=== PATIENT | male | born 1955 | race Caucasian/White ===

== ENCOUNTER 2020-10-17 19:56 | Emergency (ER) | payer SELFPAY ==
--- NOTE | 2020-10-17 20:36 | ER ---
Nurse's Notes [facility] Name: Alberto Nicole Age: 65 yrs Sex: Male : 1955 Arrival Date: 10/17/2020 Time: 20:02 Bed Waiting Private MD: Diagnosis: Presentation: 10/17 20:34 Note Registration [place] says pt left. ca1 ED Course: 20:02 Patient arrived in ED. am4 Administered Medications: No medications were administered Outcome: 20:35 Patient left the ED. ca1 Signatures: Lalitha Durand RN RN ca1 Suni Smith
== END 2020-10-17 20:35 | disposition left against medical advice (07) ==
LOC: ER 19:56
DX: Z02.9 Encounter for administrative examinations, unspecified (principal)

== ENCOUNTER 2023-02-23 18:26 | Emergency (ER) | payer OTHER ==
[2023-02-23 19:15] LABS: Specific Gravity 1.012 (1.005-1.030); Urine Bacteria None Seen /HPF (<20); Urine Bilirubin NEGATIVE (Negative); Urine Blood 3+ (OVER) (Negative); Urine Clarity Extremely Turbid (Clear); Urine Color Red (Yellow); Urine Glucose NEGATIVE (Negative); Urine Protein 2+ (Negative); Urine RBC >50 /HPF (None Seen); Urine Urobilinogen Normal (Normal); Urine pH 6.5 (5.0-7.0)
[2023-02-23 19:15] LABS: Protime INR 1.05
--- NOTE | 2023-02-23 19:50 | RAD REPORT ---
EXAM DESCRIPTION: CT - Stone Protocol - 02/23/2023 7:27 pm CLINICAL HISTORY: Hematuria COMPARISON: September 2022 TECHNIQUE: Computed axial tomography of the abdomen pelvis was obtained without oral or IV contrast. Lack of IV and oral contrast limits evaluation of solid organs, appendix, bowel, and vessels. Armstrong l reformatted images were obtained and reviewed. All CT scans are performed using dose optimization technique as appropriate and may include automated exposure control or mA/KV adjustment according to patient size. FINDINGS: Marked left and moderate to marked right hydronephrosis. Mild cortical thinning right kidn ey. Each ureter is dilated to the level of the bladder. 7 centimeter area of increased density within the bladder represents blood. Left lateral asymmetric bladder wall thickening. A 6 millimeter lymph node lies adjacent to the right aspect of the bladder. Marked prostatic enlargement. No evidence of diverticulitis. Normal appendix Liver, spleen, pancreas and adrenals grossly normal Marked chronic compression deformity L1 vertebral body IMPRESSION: Both ureters are likely obstructed at the UVJ. Marked dilatation of each ureter. Marked left and moderate to marked right hydronephrosis. Blood is present within the bladder. Left lateral asymmetric bladder wall thickening may indicate neoplasm. Direct visualization recommend ed Additional bladder wall thickening likely secondary to chronic outlet obstruction
--- NOTE | 2023-02-23 20:20 | ER ---
Nurse's Notes [facility] Name: Alberto Nicole Age: 67 yrs Sex: Male : 1955 Arrival Date: 02/23/2023 Time: 18:26 Bed 18 Private MD: Diagnosis: Gross hematuria;Unspecified hydronephrosis Presentation: 02/23 18:37 Chief complaint: Patient states: "My prostate is bleeding and it is filling up my cm10 bladder with blood and it is making my blood pressure go up." Pt states that he has had blood in his urine since yesterday. Pt denies chest pain and shortness of breath. Coronavirus screen: Vaccine status: Patient reports being unvaccinated. Client denies travel out of the [place] in the last 14 days. Ebola Screen: Patient denies travel to an Ebola-affected area in the 21 days before illness onset. No symptoms or risks identified at this time. Initial Sepsis Screen: Does the patient meet any 2 criteria? No. Patient's initial sepsis screen is negative. Does the patient have a suspected source of infection? No. Patient's initial sepsis screen is negative. Risk Assessment: Do you want to hurt yourself or someone else? Patient reports no desire to harm self or others. Onset of symptoms was February 22, 2023. 18:37 Method Of Arrival: Ambulatory cm10 18:37 Acuity: AMILCAR 3 cm10 Triage Assessment: 18:46 General: Appears in no apparent distress. comfortable, Behavior is calm, cooperative. db Pain: Denies pain. Historical: - Allergies: 18:40 No Known Allergies; cm10 - PMHx: 18:40 Hypertensive disorder; BPH; cm10 - PSHx: 18:40 prostate; cm10 - Immunization history:: Adult Immunizations up to date. - Social history:: Smoking status: Patient denies any tobacco usage or history of. - Family history:: not pertinent. - Hospitalizations: : No recent hospitalization is reported. Screenin:[address] [facility] ED Fall Risk Assessment (Adult) Score/Fall Risk Level 0 - 2 = Low Risk. Abuse eh3 screen: Denies threats or abuse. Denies injuries from another. Nutritional screening: No deficits noted. Tuberculosis screening: No symptoms or risk factors identified. Assessment: 18:45 General: Appears in no apparent distress. uncomfortable, Behavior is calm, cooperative, eh3 appropriate for age. Pain: Complains of pain in suprapubic area. Neuro: Level of Consciousness is awake, alert, obeys commands, Oriented to person, place, time, situation. Cardiovascular: Capillary refill < 3 seconds Patient's skin is warm and dry. Respiratory: Airway is patent Respiratory effort is even, unlabored, Respiratory pattern is regular, symmetrical. GI: Abdomen is round non-distended. : Urine is cande blood. Derm: Skin is healthy with good turgor, Skin is pink, warm \\T\\ dry. Musculoskeletal: Circulation, motion, and sensation intact. Range of motion: intact in all extremities. 19:30 Reassessment: Patient appears in no apparent distress at this time. Patient and/or eh3 family updated on plan of care and expected duration. Pain level reassessed. Patient is alert, oriented x 3, equal unlabored respirations, skin warm/dry/pink. 20:30 Reassessment: Patient appears in no apparent distress at this time. Patient and/or eh3 family updated on plan of care and expected duration. Pain level reassessed. Patient is alert, oriented x 3, equal unlabored respirations, skin warm/dry/pink. 21:30 Reassessment: Patient appears in no apparent distress at this time. Patient and/or eh3 family updated on plan of care and expected duration. Pain level reassessed. Patient is alert, oriented x 3, equal unlabored respirations, skin warm/dry/pink. 22:30 Reassessment: Patient and/or family updated on plan of care and expected duration. Pain ha1 level reassessed. Patient is alert, oriented x 3, equal unlabored respirations, skin warm/dry/pink. 23:00 Reassessment: report given to IRMA Alfred. ha1 02/24 00:00 Reassessment: Patient and/or family updated on plan of care and expected duration. Pain ha1 level reassessed. Patient is alert, oriented x 3, equal unlabored respirations, skin warm/dry/pink. Vital Signs: 02/23 18:37 BP 227 / 115; Pulse 67; Resp 18; Temp 98.1; Pulse Ox 100% ; Weight 104.33 kg; Height 6 cm10 ft. 1 in. ; Pain 0/10; 20:31 BP 228 / 116; Pulse 66; Resp 18; Pulse Ox 98% on R/A; eh3 21:00 BP 218 / 104; Pulse 64; Resp 18; Pulse Ox 98% on R/A; eh3 21:30 BP 200 / 102; Pulse 60; Resp 16; Pulse Ox 98% on R/A; eh3 22:00 BP 131 / 82; Pulse 66; Resp 15; Pulse Ox 97% on R/A; eh3 23:00 BP 152 / 83; Pulse 64; Resp 17; Pulse Ox 98% on R/A; ha1 02/24 00:00 BP 151 / 93; Pulse 63; Resp 17 S; Pulse Ox 100% on R/A; ha1 02/23 18:37 Body Mass Index 30.34 (104.33 kg, 185.42 cm) cm10 02/23 18:37 Pain Scale: Adult cm10 ED Course: 02/23 18:29 Patient arrived in ED. mr 18:38 Gilbert Martinez MD is Attending Physician. rn 18:40 Triage completed. cm10 18:41 Arm band placed on Patient placed in an exam room, on a stretcher. cm10 18:45 Patient has correct armband on for positive identification. Placed in gown. Bed in low eh3 position. Call light in reach. Side rails up X2. Provided Education on: Use of call ferguson. Client placed on continuous cardiac and pulse oximetry monitoring. NIBP monitoring applied. 18:52 Letty Rodriguez, RN is Primary Nurse. eh3 19:00 Inserted saline lock: 20 gauge in right antecubital area, using aseptic technique. eh3 Blood collected. 19:29 CT Stone Protocol In Process Unspecified. EDMS 20:00 Rasmussen cath inserted, using sterile technique, 16 Fr., by va, balloon inflated, to eh3 gravity drainage, Patient tolerated well. 20:17 Initiated transfer with Stacy at [facility]. rv1 21:07 Attending Physician role handed off by Gilbert Martinez MD sp4 21:07 Mitesh Montejo MD is Attending Physician. sp4 22:15 Report received from IRMA Saenz. ha1 22:20 Report given to Ariella Hedrick RN. eh3 23:[address] [facility] by Dr. Durham to Rm [id number]. rv1 02/24 00:07 No provider procedures requiring assistance completed. Patient transferred, IV remains ha1 in place. Administered Medications: 02/23 21:00 Drug: cloNIDine PO 0.1 mg Route: PO; 3 22:02 Follow up: Response: No adverse reaction 3 21:48 Drug: morphine IVP or IV 4 mg Route: IVP; Infused Over: 4 mins; Site: right antecubital;eh3 21:48 Drug: hydrALAZINE IVP 10 mg Route: IVP; Site: right antecubital; eh3 21:48 Drug: Ondansetron IVP 4 mg Route: IVP; Site: right antecubital; eh3 21:55 Drug: Piperacillin-Tazobactam IVPB 3.375 grams Route: IVPB; Infused Over: 60 mins; 3 Site: right antecubital; 23:15 Drug: NS 0.9% IV 1000 ml Route: IV; Rate: 125 ml/hr; Site: right antecubital; ha1 Medication: 02/24 00:07 VIS not applicable for this client. ha1 Outcome: 02/23 20:19 ER care complete, transfer ordered by MD. [place] 02/24 00:07 Transferred by ground EMS to [facility]. ha1 Condition: stable Discharge instructions given to patient, family, Instructed on the need for transfer, Demonstrated understanding of instructions. 00:09 Patient left the ED. ha1 Signatures: Dispatcher [employer] ALISSONIL Rayray Arabella MichelleGilbert MD MD rn Hall, Erin, RN RN 3 Ariella Hedrick RN RN 1 Dilcia Ernandez RN RN db Villegas, Rebecca Mitesh Bell MD MD sp4 Malou Smith RN RN cm10 Corrections: (The following items were deleted from the chart) 00:08 00:07 Reassessment: report given to IRMA Alfred ha1 ha1
--- NOTE | 2023-02-23 20:20 | EDPHYS ---
Physician Documentation [facility] Name: Alberto Nicole Age: 67 yrs Sex: Male : 1955 Arrival Date: 02/23/2023 Time: 18:26 Bed 18 Private MD: ED Physician Mitesh Montejo HPI: 02/23 20:00 This 67 yrs old Male presents to ER via Ambulatory with complaints of High Blood rn Pressure, hematuria. 20:00 The patient has elevated blood pressure and discovered this at home. rn 20:01 The patient presents with urinary symptoms, hematuria. Onset: The symptoms/episode rn began/occurred today. Modifying factors: The symptoms are alleviated by nothing, the symptoms are aggravated by nothing. Severity of symptoms: At their worst the symptoms were moderate, in the emergency department the symptoms have improved. The patient has experienced similar episodes in the past. Pt reports hx of BPH and bladder infections with hematuria. Has to cath himself sometimes, but not everytime. Not on blood thinners. Has urologist in [place]. No trauma. No fever. Able to urinate. Urine is dark blood now, was bright red. . Historical: - Allergies: 18:40 No Known Allergies; cm10 - PMHx: 18:40 Hypertensive disorder; BPH; cm10 - PSHx: 18:40 prostate; cm10 - Immunization history:: Adult Immunizations up to date. - Social history:: Smoking status: Patient denies any tobacco usage or history of. - Family history:: not pertinent. - Hospitalizations: : No recent hospitalization is reported. ROS: 20:01 Constitutional: Negative for fever, chills, and weight loss, Cardiovascular: Negative rn for chest pain, palpitations, and edema, Respiratory: Negative for shortness of breath, cough, wheezing, and pleuritic chest pain, Abdomen/GI: Negative for abdominal pain, nausea, vomiting, diarrhea, and constipation, : + hematuria MS/Extremity: Negative for injury and deformity, Neuro: Negative for headache, weakness, numbness, tingling, and seizure. Exam: 20:01 Constitutional: This is a well developed, well nourished patient who is awake, alert, rn and in no acute distress. Head/Face: Normocephalic, atraumatic. Cardiovascular: Regular rate and rhythm. No pulse deficits. Respiratory: No increased work of breathing, no retractions or nasal flaring. Abdomen/GI: Soft, non-tender Vital Signs: 18:37 BP 227 / 115; Pulse 67; Resp 18; Temp 98.1; Pulse Ox 100% ; Weight 104.33 kg; Height 6 cm10 ft. 1 in. ; Pain 0/10; 20:31 BP 228 / 116; Pulse 66; Resp 18; Pulse Ox 98% on R/A; eh3 21:00 BP 218 / 104; Pulse 64; Resp 18; Pulse Ox 98% on R/A; eh3 21:30 BP 200 / 102; Pulse 60; Resp 16; Pulse Ox 98% on R/A; eh3 22:00 BP 131 / 82; Pulse 66; Resp 15; Pulse Ox 97% on R/A; eh3 23:00 BP 152 / 83; Pulse 64; Resp 17; Pulse Ox 98% on R/A; ha1 02/24 00:00 BP 151 / 93; Pulse 63; Resp 17 S; Pulse Ox 100% on R/A; ha1 02/23 18:37 Body Mass Index 30.34 (104.33 kg, 185.42 cm) cm10 02/23 18:37 Pain Scale: Adult cm10 Procedures: 02/23 21:39 Bladder irrigated via Dailey with 4000 ml normal saline returned cande blood Patient sp4 tolerated well. MDM: 18:39 Patient medically screened. rn 20:16 Differential diagnosis: UTI, urinary retention, prostatitis, urethritis. Differential rn diagnosis: bladder cancer. Data reviewed: vital signs, nurses notes. Counseling: I had a detailed discussion with the patient and/or guardian regarding the historical points, exam findings, and any diagnostic results supporting the discharge/admit diagnosis, lab results, radiology results, the need for further work-up and treatment in the hospital, the need to transfer to another facility, for higher level of care, [facility] does not immediately have the required specialist. Response to treatment: the patient's symptoms have mildly improved after treatment, and as a result, I will admit patient. ED course: Pt with asymmetric bladder wall thickening and bilateral hydronephrosis, able to urinate, dailey being placed to irrigate, no urology here and his urologist is at [facility] in [place]. Transfer initiated to [facility]. . 21:40 ED course: Patient was [facility] who sp4 accepted patient but requested blood pressure controlled prior to patient being accepted. 02/23 18:50 Order name: Urinalysis w/ reflexes; Complete Time: 19:55 rn 02/23 18:50 Order name: Protime (+inr); Complete Time: 19:55 rn 02/23 18:50 Order name: Ptt, Activated; Complete Time: 19:55 rn 02/23 19:23 Order name: Urine Culture EDMS 02/23 20:22 Order name: CBC with Diff; Complete Time: 23:02 rn 02/23 20:22 Order name: BMP; Complete Time: 23:02 rn 02/23 18:50 Order name: CT Stone Protocol; Complete Time: 19:55 rn 02/23 18:50 Order name: EKG; Complete Time: 18:50 rn 02/23 18:50 Order name: IV Start; Complete Time: 19:08 rn 02/23 18:50 Order name: Cardiac monitoring; Complete Time: 19:08 rn 02/23 18:50 Order name: O2 Sat Monitoring; Complete Time: 19:08 rn 02/23 18:50 Order name: EKG - Nurse/Tech; Complete Time: 19:07 rn 02/23 19:19 Order name: Dailey-Hematuria; Complete Time: 20:56 rn 02/23 19:19 Order name: Bladder Irrigation; Complete Time: 20:56 rn Administered Medications: 21:00 Drug: cloNIDine PO 0.1 mg Route: PO; eh3 22:02 Follow up: Response: No adverse reaction eh3 21:48 Drug: morphine IVP or IV 4 mg Route: IVP; Infused Over: 4 mins; Site: right antecubital;eh3 21:48 Drug: hydrALAZINE IVP 10 mg Route: IVP; Site: right antecubital; eh3 21:48 Drug: Ondansetron IVP 4 mg Route: IVP; Site: right antecubital; eh3 21:55 Drug: Piperacillin-Tazobactam IVPB 3.375 grams Route: IVPB; Infused Over: 60 mins; eh3 Site: right antecubital; 23:15 Drug: NS 0.9% IV 1000 ml Route: IV; Rate: 125 ml/hr; Site: right antecubital; ha1 Disposition Summary: 02/23/23 20:19 Transfer Ordered Transfer Location: [facility] rn Reason: Higher level of care rn Condition: Stable rn Problem: new rn Symptoms: have improved rn Accepting Physician: (02/24/23 00:09) ha1 Diagnosis - Gross hematuria rn - Unspecified hydronephrosis rn Forms: - Medication Reconciliation Form rn - SBAR form rn Signatures: Dispatcher [employer] EDGilbert Paul MD MD rn Hall, Erin, RN RN 3 Ariella Hedrick RN RN dilma1 Mitesh Montejo MD MD sp4 Malou Smith RN RN cm10 Corrections: (The following items were deleted from the chart) 02/24 00:09 02/23 20:19 rn ha1
[2023-02-23] MEDS ORDERED: NACL 0.9% IRR SOLN 4,000 ML IRR ONE (20:37)
[2023-02-23] MEDS ORDERED: cloNIDine HCL 0.1 MG TAB ONE (21:07)
[2023-02-23] MEDS ORDERED: HYDRALAZINE HCL 20 MG/ML VIAL ONE (21:52)
[2023-02-23] MEDS ORDERED: ONDANSETRON 4 MG/2 ML VIAL ONE (21:52)
[2023-02-23] MEDS ORDERED: MORPHINE 4 MG/ML SYR ONE (21:52)
[2023-02-23] MEDS ORDERED: NA CHLORIDE 0.9% 100 ML ONE (21:52)
[2023-02-23] MEDS ORDERED: PIPERACIL/TAZO 3.375 GM VIAL IV ONE (21:53)
[2023-02-23 22:00] LABS: Absolute Lymphocytes (CBC) 1.1 K/uL (0.7-4.9); Hematocrit 36.9 % (39.6-49.0); Lymphocytes % 13.4 % (15.3-44.8); MPV 7.4 fL (7.6-11.3); Platelets 203 thou/uL (152-406); RBC Red Blood Cell Count 4.39 M/uL (4.33-5.43)
[2023-02-23 22:03] LABS: Potassium 3.7 mEq/L (3.5-5.1)
[2023-02-23] MEDS ORDERED: NA CHLORIDE 0.9% 1,000 ML ONE (23:42)
[2023-02-23] MEDS ORDERED: NA CHLORIDE 0.9% 2,000 ML ONE (23:53)
[2023-02-24 00:37] VITALS: TEMP 98.1
[2023-02-24 00:43] VITALS: BP 151/93; O2SAT 100
--- NOTE | 2023-02-25 15:08 | EKG ---
Test Date: 2023-02-23 Test Time: 19:02:28 Program Host: KARELY MEASUREMENT RESULTS: Intervals: Rate: 63 OR: 146 QRSD: 82 QT: 414 QTc: 423 [place]: P: 51 OR: 146 QRS: 56 T: 45 INTERPRETIVE STATEMENTS: Normal sinus rhythm Nonspecific ST abnormality Abnormal ECG No previous ECG available for comparison Electronically Signed On 02-25-23 15:06:07 CDT by Kaushik Curtis
== END 2023-02-24 00:09 | disposition short-term general hospital (02) ==
LOC: ER 18:26
DX: N13.30 Unspecified hydronephrosis (principal); I10 Essential (primary) hypertension; N40.0 Benign prostatic hyperplasia without lower urinary tract symptoms
CPT/HCPCS: 93005; 87088; 85025; 81001; 87086; 80048; 36415; 85610; 85730; 76377; 74176; 51700; 51702; 96375; 96374; 99285; J0360; J2543; J2405; J7030 ×2

== ENCOUNTER 2023-05-28 06:16 | Emergency (ER) | payer BC, OTHER ==
--- NOTE | 2023-05-28 07:12 | EDPHYS ---
Physician Documentation [facility] Name: Alberto Nicole Age: 68 yrs Sex: Male : 1955 Arrival Date: 05/28/2023 Time: 06:16 Bed 12 Private MD: ED Physician Mitesh Montejo HPI: 05/28 06:39 This 68 yrs old Male presents to ER via Unassigned with complaints of Problem sp4 With Urinary Catheter. 07:08 68-year-old male presents with large bore Rasmussen catheter that is not properly draining. sp4 Patient had partial prostatectomy throat he has urinated bladder at [facility] several days ago. . Historical: - Allergies: 06:54 No Known Allergies; km8 - PMHx: 06:54 BPH; Hypertensive disorder; km8 - PSHx: 06:54 prostatectomy; km8 - Immunization history:: Adult Immunizations up to date, Client reports having NOT received the Covid vaccine. Flu vaccine is not up to date. - Social history:: Smoking status: Patient denies any tobacco usage or history of. Patient/guardian denies using alcohol, street drugs. - Family history:: not pertinent. ROS: 07:08 Constitutional: Negative for fever, chills, and weight loss, sp4 07:08 All other systems are negative, Exam: 07:08 Constitutional: This is a well developed, well nourished patient who is awake, alert, sp4 and in no acute distress. Head/Face: Normocephalic, atraumatic. Eyes: Pupils equal round and reactive to light, extra-ocular motions intact. Lids and lashes normal. Conjunctiva and sclera are not injected. Cornea within normal limits. Periorbital areas with no swelling, redness, or edema. ENT: Nares patent. No nasal discharge, no septal abnormalities noted. Tympanic membranes are normal and external auditory canals are clear. Oropharynx with no redness, swelling, or masses, exudates, or evidence of obstruction, uvula midline. Mucous membranes moist. 07:08 Neck: Trachea midline, no thyromegaly or masses palpated, and no cervical lymphadenopathy. Supple, full range of motion without nuchal rigidity, or vertebral point tenderness. Chest/axilla: Normal chest wall appearance and motion. Nontender with no deformity. No lesions are appreciated. Cardiovascular: Regular rate and rhythm with a normal S1 and S2. No gallops, murmurs, or rubs. Normal PMI, no JVD. No pulse deficits. Respiratory: Lungs have equal breath sounds bilaterally, clear to auscultation and percussion. No rales, rhonchi or wheezes noted. No increased work of breathing, no retractions or nasal flaring. Abdomen/GI: Soft, non-tender, with normal bowel sounds. No distension or tympany. No guarding or rebound. No evidence of tenderness throughout. Back: No spinal tenderness. No costovertebral tenderness. Male : Normal genitalia with no discharge or lesions. Uncircumcised male, triple-lumen 24 Nigerian Rasmussen catheter present, catheter is silicon. Catheter was exchanged on exam Skin: Warm, dry with normal turgor. Normal color with no rashes, no lesions, and no evidence of cellulitis. MS/ Extremity: Pulses equal, no cyanosis. Neurovascular intact. Full, normal range of motion. Neuro: Awake and alert, GCS 15, oriented to person, place, time, and situation. Cranial nerves II-XII grossly intact. Motor strength 5/5 in all extremities. Sensory grossly intact. Psych: Awake, alert, with orientation to person, place and time. Behavior, mood, and affect are within normal limits Vital Signs: 06:51 BP 138 / 89; Pulse 68; Resp 16; Temp 98.2(TE); Pulse Ox 97% on R/A; Weight 99.79 kg [facility] (R); Height 6 ft. 1 in. (R); Pain 3/10; 06:51 Body Mass Index 29.03 (99.79 kg, 185.42 cm) [facility] 06:51 Pain Scale: Adult [facility] MDM: 07:08 Differential Diagnosis flu, Rasmussen catheter occlusion. Data reviewed: vital signs, sp4 nurses notes. ED course: Rasmussen catheter exchanged on exam via 24 Nigerian double-lumen coud cath. Catheter is draining properly. 07:11 Patient medically screened. sp4 Administered Medications: No medications were administered Disposition Summary: 05/28/23 07:11 Discharge Ordered Notes: Location: Home sp4 Problem: new sp4 Symptoms: have improved sp4 Condition: Stable sp4 Diagnosis - Other mechanical complication of urinary (indwelling) catheter sp4 - Urinary catheter discomfort sp4 Followup: sp4 - With: Private Physician - When: 7 - 10 days - Reason: Recheck today's complaints Discharge Instructions: - Discharge Summary Sheet sp4 - Indwelling Urinary Catheter Care, Adult, [id number] sp4 Forms: - Patient Portal Instructions sp4 Signatures: Mitesh Montejo MD MD sp4 Aurora Gagnon RN RN km8 Corrections: (The following items were deleted from the chart) 06:55 06:54 PSHx: prostate; km8 km8
--- NOTE | 2023-05-28 07:12 | ER ---
Nurse's Notes [facility] Name: Alberto Nicole Age: 68 yrs Sex: Male : 1955 Arrival Date: 05/28/2023 Time: 06:16 Bed 12 Private MD: Diagnosis: Other mechanical complication of urinary (indwelling) catheter;Urinary catheter discomfort Presentation: 05/28 06:51 Chief complaint: Patient states: pt states "my catheter isn't draining well"; pt had a km8 prostatectomy on Sunday and went home with a Rasmussen; pt feels like his bladder is full; had 500ml of output last night. Coronavirus screen: Client denies travel out of the [place] in the last 14 days. Ebola Screen: No symptoms or risks identified at this time. Initial Sepsis Screen: Does the patient meet any 2 criteria? No. Patient's initial sepsis screen is negative. Does the patient have a suspected source of infection? No. Patient's initial sepsis screen is negative. Risk Assessment: Do you want to hurt yourself or someone else? Patient reports no desire to harm self or others. Onset of symptoms was May 28, 2023. 06:51 Method Of Arrival: Ambulatory km8 06:51 Acuity: AMILCAR 4 km8 Triage Assessment: 06:54 General: Appears in no apparent distress. comfortable, Behavior is calm, cooperative, km8 appropriate for age. Pain: Complains of pain in suprapubic area. EENT: No signs and/or symptoms were reported regarding the EENT system. Neuro: [place] Agitation-Sedation Scale (RASS): 0 - Alert and Calm Level of Consciousness is awake, alert, obeys commands, Oriented to person, place, time, situation. Cardiovascular: Capillary refill < 3 seconds Patient's skin is warm and dry. Respiratory: Airway is patent Respiratory effort is even, unlabored, Respiratory pattern is regular, symmetrical. GI: No signs and/or symptoms were reported involving the gastrointestinal system. : 3-way catheter in place to gravity drainage Urine is blood tinged, Reports "bladder feels full". Derm: No signs and/or symptoms reported regarding the dermatologic system. Skin is intact, is healthy with good turgor, Skin is dry, Skin is pink, warm \\T\\ dry. normal, Skin temperature is warm. Musculoskeletal: No signs and/or symptoms reported regarding the musculoskeletal system. Range of motion: intact in all extremities. Historical: - Allergies: 06:54 No Known Allergies; km8 - PMHx: 06:54 BPH; Hypertensive disorder; km8 - PSHx: 06:54 prostatectomy; km8 - Immunization history:: Adult Immunizations up to date, Client reports having NOT received the Covid vaccine. Flu vaccine is not up to date. - Social history:: Smoking status: Patient denies any tobacco usage or history of. Patient/guardian denies using alcohol, street drugs. - Family history:: not pertinent. Screenin:[birth year] [facility] ED Fall Risk Assessment (Adult) History of falling in the last 3 months, km8 including since admission No falls in past 3 months (0 pts) Confusion or Disorientation No (0 pts) Intoxicated or Sedated No (0 pts) Impaired Gait No (0 pts) Mobility Assist Device Used No (0 pt) Altered Elimination No (0 pt) Score/Fall Risk Level 0 - 2 = Low Risk Oriented to surroundings, Maintained a safe environment, Educated pt \\T\\ family on fall prevention, incl call for assistance when getting out of bed, Assessed \\T\\ reinforced patient's understanding of fall precautions. Abuse screen: Denies threats or abuse. Denies injuries from another. Nutritional screening: No deficits noted. Tuberculosis screening: No symptoms or risk factors identified. Vital Signs: 06:51 BP 138 / 89; Pulse 68; Resp 16; Temp 98.2(TE); Pulse Ox 97% on R/A; Weight 99.79 kg km8 (R); Height 6 ft. 1 in. (R); Pain 3/10; 06:51 Body Mass Index 29.03 (99.79 kg, 185.42 cm) km8 06:51 Pain Scale: Adult km8 ED Course: 06:17 Patient arrived in ED. gm2 06:39 Mitesh Montejo MD is Attending Physician. sp4 06:54 Triage completed. km8 06:54 Arm band placed on right wrist. km8 06:57 Patient has correct armband on for positive identification. Bed in low position. Call km8 light in reach. Side rails up X 1. 06:57 Patient maintains SpO2 saturation greater than 95% on room air. km8 Administered Medications: No medications were administered Outcome: 07:11 Discharge ordered by . mahesh 07:19 Patient left the ED. ds4 Signatures: Delonte Power ds4 Mitesh Montejo MD MD sp4 Carrie Martinez 2 Aurora Gagnon RN RN km8 Corrections: (The following items were deleted from the chart) 06:55 06:54 PSHx: prostate; km8 km8
[2023-05-28 07:23] VITALS: BP 138/89; TEMP 98.2; O2SAT 97
== END 2023-05-28 07:19 | disposition home or self-care (01) ==
LOC: ER 06:16
DX: T83.091A Other mechanical complication of indwelling urethral catheter, initial encounter (principal); N40.0 Benign prostatic hyperplasia without lower urinary tract symptoms; I10 Essential (primary) hypertension
CPT/HCPCS: 99283